=== PATIENT | female | born 1975 | race Caucasian/White ===

== ENCOUNTER 2016-12-03 21:20 | Emergency (ER) | payer SELFPAY ==
--- NOTE | 2016-12-03 21:53 | OBDCSUM ---
Datetime: 12/03/2016 21:52 Discharged to, Provider: Home Follow up at, Provider: 1 day Follow up in weeks, Provider: [facility] Discharge Comment, Provider: dc home labor ins given po hyration f/u in [facility] Discharge Diagnosis Prov Other: 38weeks nst false labor
--- NOTE | 2016-12-03 21:54 | OBHP ---
Datetime: 12/03/2016 21:48 IP Adm Impression: Term, intrauterine IP Chief Complaint Other: back pain IP Admit Plan: Discharge home Admit Comment, IP Provider: at 38weeks came with c/o back and ctxs from 2 days, irrg. pt came from [facility] on november 04 and never saw a physcian.no ctxs, vb, lof,+fm obhx 4 x pmh de med pnv all nkda psh den soch den bss cep/pos/wnl a/p at 38weeks false labor dc home labor ins given po hyration f/u in [facility] Pelvic Type - PN: Adequate Extremities - PN: Normal Abdomen - PN: Normal Back - PN: Normal Breast - PN: Normal Lungs - PN: Normal Heart - PN: Normal Thyroid - PN: Normal Neurologic - PN: Normal HEENT - PN: Normal General - PN: Normal FHR - Baseline A Provider: 130 Contraction Comments Provider: irrg Comments, ACOG Physical Exam: gravid,,non tender ext no edema,no calf ten ve closed EGA AdmitDate IP: 38.0 Vital Signs Provider: Reviewed; Within Normal Limits IP Chief Complaint: Uterine contractions NICHD Variability Prov Fetus A: Moderate 6-25bpm NICHD Accel Fetus A IP Provider: 15X15 FHR Category Provider Fetus A: Category I Dilatation, Provider: 0 Effacement, Provider: 0 Station, Provider: -3 Genitourinary Exam: Normal DTRs - PN: Normal
== END 2016-12-03 22:08 | disposition home or self-care (01) ==
LOC: C.EROB 21:20
DX: O47.1 False labor at or after 37 completed weeks of gestation (principal); Z3A.38 38 weeks gestation of pregnancy

== ENCOUNTER 2016-12-18 18:44 | Inpatient (IN) | payer SELFPAY ==
--- NOTE | 2016-12-18 19:13 | OBADHP ---
Datetime: 12/18/2016 19:10 Admit Comment, IP Provider: at 40weeks came with c/o back and ctxs from 2 days, irrg. 8/10. pt had some vb pt came from [place] on november 04 and never saw a physcian.=fm obhx 4 x pmh de med pnv all nkda psh den soch den ve /-2 a/p at 40weeks in active labor admit to l7d npo/ivf pain pain management no care labs gbs prophylaxsis cont sumanth and efm anticipate Pelvic Type - PN: Adequate Extremities - PN: Normal Abdomen - PN: Normal Back - PN: Normal Breast - PN: Normal Lungs - PN: Normal Heart - PN: Normal Thyroid - PN: Normal Neurologic - PN: Normal HEENT - PN: Normal General - PN: Normal FHR - Baseline A Provider: 140 Contraction Comments Provider: q-4 Comments, ACOG Physical Exam: gravid,non tender ext no edema,no calf ten IP Hx Assessment: The History has been Reviewed and is Current Vital Signs Provider: Reviewed; Within Normal Limits IP Chief Complaint: Uterine contractions NICHD Variability Prov Fetus A: Moderate 6-25bpm NICHD Accel Fetus A IP Provider: 15X15 FHR Category Provider Fetus A: Category I Dilatation, Provider: 4 Effacement, Provider: 70 Station, Provider: -2 Genitourinary Exam: Normal DTRs - PN: Normal EGA AdmitDate IP: 40.1 IP Adm Impression: Term, intrauterine ; Active labor; Intact Membranes IP Admit Plan: Admit to unit; Initiate labor protocol Datetime: 12/03/2016 21:48 IP Chief Complaint Other: back pain
[2016-12-18 19:14] VITALS: BMI 33.6
[2016-12-18] MEDS ORDERED: Penicillin G 5 Million Unit Vial IVPB ONE ×2 (19:14→19:30)
[2016-12-18] MEDS ORDERED: Lactated Ringer's 1,000 ML IV SCH (19:15)
[2016-12-18] MEDS ORDERED: Oxytocin 30 UNIT 30 UNITS/500 ML BAG IV PRN (19:17)
[2016-12-18] MEDS ORDERED: Oxycodone/Acetaminophen 5/325 mg Tab PO PRN (19:28)
[2016-12-18] MEDS ORDERED: Benzocaine/Menthol 20%-0.5% Topical Spray (60 ml) TOP PRN (19:28)
[2016-12-18] MEDS ORDERED: Nalbuphine 20 mg/ml Inj (1 ml) IVP PRN (19:30)
[2016-12-18] MEDS ORDERED: Oxytocin 30 UNIT 30 UNITS/500 ML BAG IV SCH (19:30)
[2016-12-18 19:45] LABS: BASO # 0.1 K/uL (0.0-0.2); BASO % 0.4 % (0.0-2.0); EOS # 0.1 K/uL (0.0-0.7); EOS % 0.4 % (0.0-4.0); HEMOGLOBIN 9.5 g/dL (11.0-16.0); LYMPH # 2.5 K/uL (1.0-4.3); LYMPH % 20.9 % (20.0-40.0); MEAN CELL VOLUME 74.5 fL (81.0-99.0); MEAN CORPUSCULAR HEMOGLOBIN 24.4 pg (27.0-31.0); MEAN CORPUSCULAR HGB CONC 32.7 g/dL (33.0-37.0); MEAN PLATELET VOLUME 9.4 fL (7.2-11.7); MONO # 0.8 K/uL (0.0-0.8); MONO % 6.9 % (0.0-10.0); NEUT # 8.4 K/uL (1.8-7.0); NEUT % 71.4 % (50.0-75.0); RBC 3.89 Mil/uL (3.80-5.20); RED CELL DISTRIBUTION WIDTH 17.5 % (11.5-14.5); WHITE BLOOD COUNT 11.8 K/uL (4.8-10.8)
[2016-12-18 19:47] LABS: SQUAMOUS EPITHIAL < 1 /hpf (0-5); URINE BILIRUBIN NEGATIVE (NEGATIVE); URINE CLARITY Clear (Clear); URINE COLOR Yellow (YELLOW); URINE GLUCOSE (UA) NORMAL (Normal); URINE LEUKOCYTE ESTERASE NEG Leu/uL (Negative); URINE NITRATE NEGATIVE (NEGATIVE); URINE PROTEIN NEGATIVE (NEGATIVE); URINE UROBILINOGEN NORMAL mg/dL (0.2-1.0)
[2016-12-18 19:48] LABS: URINE BLOOD NEGATIVE (NEGATIVE)
[2016-12-18 19:53] LABS: INR 0.9; PROTHROMBIN TIME 10.4 SECONDS (9.7-12.2)
[2016-12-18 19:58] LABS: ALBUMIN 3.3 g/dL (3.5-5.0)
[2016-12-18 20:01] LABS: GFR AFRICAN-AMERICAN > 60; GFR NON-AFRICAN AMERICAN > 60
[2016-12-18 20:02] LABS: ALB/GLOB RATIO 0.9 (1.0-2.1); ALT/SGPT 21 U/L (9-52); AST/SGOT 21 U/L (14-36); BILIRUBIN,DIRECT 0.4 mg/dL (0.0-0.4); BLOOD UREA NITROGEN 10 mg/dL (7-17); CALCIUM 9.1 mg/dl (8.6-10.4)
--- NOTE | 2016-12-18 20:28 | OBPN ---
Datetime: 12/18/2016 20:24 IP Procedures Other: srom IP Progress Impression: Normal progression of labor IP Procedures: Sterile Vag Exam FHR - Baseline A Provider: 130 IP Progress Note Comment: pt was examined a bed side ve 8/100/-1 srom clear anticipate Vital Signs Provider: Reviewed; Within Normal Limits NICHD Accel Fetus A IP Provider: 15X15 FHR Category Provider Fetus A: Category I NICHD Variability Prov Fetus A: Moderate 6-25bpm Dilatation, Provider: 8 Effacement, Provider: 100 Station, Provider: -1 Datetime: 12/18/2016 19:10 IP Informed Consent Obtain: Vaginal Delivery Contraction Comments Provider: q-4
[2016-12-18 20:33] LABS: HEPATITIS B SURFACE AG NEGATIVE (NEGATIVE)
--- NOTE | 2016-12-18 21:11 | OBDS ---
DELIVERY PERSONNEL Delivery Doctor: Antonio Scwharz MD Surface Mount Technology Operator: Clinton, Molly RN MATERNAL INFORMATION Estimated Blood Loss (ml): 300 Provider Comments: baby delivered in abhinav. compound presentation . post arm deliverd. peads called. 9/9. cytotec 1000mc pr no com LABOR SUMMARY EDC: 12/17/2016 00:00 No. Babies in Womb: 4 LABOR INFORMATION Onset of Labor: 12/18/2016 15:00 Group B Beta Strep: Not Done Antibiotics # of Doses: 1 Antibiotics Time of Last Dose: 1925 Steroids Given: None Reason Steroids Not Administered: Not Applicable MEMBRANES Membranes Rupture Method: Spontaneous Rupture of Membranes: 12/18/2016 20:24 Length of Rupture (hrs): 0.58 Amniotic Fluid Color: Clear Amniotic Fluid Amount: Moderate STAGES OF LABOR Stage 3 hrs: 0 Stage 3 min: 4 Total Time in Labor hrs: 6 Total Time in Labor min: 3 VAGINAL DELIVERY Episiotomy: None Laceration Extension: N/A Laceration Type: None Sponge Count Correct: N/A Sharps Count Correct: N/A BABY A INFORMATION Delivery Date/Time: 12/18/2016 20:59 Method of Delivery: Vaginal Born in Route : No : N/A Forceps: N/A Vacuum Extraction: N/A Shoulder Dystocia : No SHOULDER DYSTOCIA BABY A Delivery Date/Time: 12/18/2016 20:59 PRESENTATION/POSITION BABY A Presentation: Cephalic Cephalic Presentation: Vertex Vertex Position: Left Occipital Anterior Breech Presentation: N/A PLACENTA INFORMATION BABY A Placenta Delivery Time : 12/18/2016 21:03 Placenta Method of Delivery: Spontaneous Placenta Status: Delivered INFORMATION BABY A Gestational Age at Delivery: 40.1 Gestational Status: Term Infant Outcome : Liveborn Condition : Stable Sex: Female IDENTIFICATION/MEDS BABY A ID Band Number: [id number] Sensor Applied: Yes Sensor Number: [id number] WEIGHT/LENGTH BABY A Infant Birthweight (gms): 3955 Infant Weight (lb): 8 Weight (oz): 11 Length Inches: 20.50 Infant Length cms: 52.1 CORD INFORMATION BABY A No. Cord Vessels: 3 Nuchal Cord : N/A Cord Blood Taken: Yes Infant Suction: Mouth
[2016-12-18 22:13] LABS: RAPID PLASMA REAGIN NONREACTIVE (NONREACTIVE)
[2016-12-18] MEDS ORDERED: Penicillin G Potassium 2.5 MU in Dextrose 5% In Water 50 ML IV SCH (23:30)
[2016-12-19 07:39] LABS: HEMOGLOBIN 9.3 g/dL (11.0-16.0); MEAN CORPUSCULAR HEMOGLOBIN 24.2 pg (27.0-31.0); MEAN CORPUSCULAR HGB CONC 32.3 g/dL (33.0-37.0); MEAN PLATELET VOLUME 9.3 fL (7.2-11.7); RBC 3.85 Mil/uL (3.80-5.20); RED CELL DISTRIBUTION WIDTH 17.1 % (11.5-14.5); WHITE BLOOD COUNT 13.6 K/uL (4.8-10.8)
--- NOTE | 2016-12-19 16:24 | OBPPN ---
Datetime: 12/19/2016 08:29 PP Pain Prov: Within normal limits PP Nausea Prov: Denies PP Flatus Prov: Yes PP BM Prov: No PP Heart Prov: Normal PP Lungs Prov: Normal PP Abdomen/Uterus Prov: Normal PP Lochia Prov: Normal PP CVA Tenderness Prov: Normal PP Extremities Prov: Normal PP C/S Incision Prov: Not Applicable PP Progress Prov: Normal PP Impression Prov: Normal progression PP Plan Prov: Continue present management PP Progress Note Prov: S-patient reports adequate pain contro.Patient denies nausea, vomitong, heada janak, chest pain, shortness of breath, numbness or tingling in hands and feet O-VSS Afberile Fundus firm and below umbilcius Extremities no calf tenderness A/P Patient s/p vaginal delivery PPD 1 doing well.Anemia note don admission -continue routine care -start iron daily Vital Signs Provider PP: Reviewed; Within Normal Limits
[2016-12-19 18:03] VITALS: O2SAT 98
[2016-12-20 08:38] VITALS: BP 113/69; PULSE 98; RESP 18; TEMP 98
--- NOTE | 2016-12-20 15:31 | OBPPN ---
Datetime: 12/20/2016 08:07 PP Pain Prov: Within normal limits PP Nausea Prov: Denies PP Flatus Prov: Yes PP BM Prov: Yes PP Breasts Prov: Normal PP Heart Prov: Normal PP Lungs Prov: Normal PP Abdomen/Uterus Prov: Normal PP Lochia Prov: Normal PP Vulva/Perineum Prov: Normal PP CVA Tenderness Prov: Normal PP Extremities Prov: Normal PP C/S Incision Prov: Not Applicable PP Progress Prov: Normal PP Comments Phys Exam Prov: Skin: warm, dry, intact Abdomen: Soft; non distended. Fundus firm, mobile, non tender, 2 FB above umbilicus. Minimal lochi a. All other systems reviewed and are negative PP Impression Prov: Normal progression PP Plan Prov: Discharge PP Progress Note Prov: Patient received in bed, room 460. exclusively. Ambulating an d voiding without difficulty. Denies dizziness, lightheadedness, palpitations. P.E.: as above. WD in NAD. Awake, alert, oriented to time, person and place. Pleasant and coopera tive - PPD#1 H/H 9.3/28.9 Rh(+) Assessment: PPD#2, 41 yo P5; S/P . Afebrile, vital signs stable. Not interested in contraceptio n. Chronic anemia - stable. Patient is asymptomatic and hemodynamically stable. Clinically stable. Plan: 1) Discharge home 2) See full discharge instructions Vital Signs Provider PP: Reviewed; Within Normal Limits
--- NOTE | 2016-12-20 15:33 | OBDCSUM ---
Datetime: 12/20/2016 12:11 Discharged to, Provider: Home Follow up at, Provider: [facility] Disch Instr Activity: Normal activity Disch Instr Diet: Regular Discharge Diet restrict Prov: none Discharge Diagnosis, Provider: Term Delivered Discharge Time: 12/20/2016 16:00 Follow up in weeks, Provider: 01/30/2017 at 1:00 P.M. Disch Referrals: [facility]er Contraception discussed, Prov: Yes Disch Activity Restrictions: No exercising; No lifting; No driving; Minimize walking; Minimize stair -climbing; No sexual activity; Nothing in vagina - [place], tampons, douche Discharge Diagnosis Prov Other: Grand multiparity Chronic anemia Contraception counseling Contraception after Delivery: Not Planning to Use
== END 2016-12-20 16:00 | disposition home or self-care (01) | DRG 775 ==
LOC: C.EROB 18:44 → C.4D 19:14 → C.4M 22:45
PROVIDERS: ADMIT Obstetrics & Gynecology; ATTEND Obstetrics & Gynecology
PROC: 10E0XZZ Delivery of Products of Conception, External Approach (ICD-10-PCS; principal; 2016-12-18)
DX: O32.6XX0 Maternal care for compound presentation, not applicable or unspecified (principal); D64.9 Anemia, unspecified; Z37.0 Single live birth; O99.02 Anemia complicating childbirth; O48.0 Post-term pregnancy; Z3A.40 40 weeks gestation of pregnancy